=== PATIENT | female | born 1960 | race Caucasian/White ===

== ENCOUNTER 2020-10-17 19:12 | Emergency (ER) | payer BC, SELFPAY ==
--- NOTE | ~2020-10-17 | US_ITS ---
EXAMINATION: ULTRASOUND ARTERIAL DUPLEX UPPER EXTREMITY LEFT CLINICAL INFORMATION: Left upper extremity numbness/weakness, decreased pulses. COMPARISON: None TECHNIQUE: Multiple 2-D grayscale and duplex Doppler ultrasound images of the arteries of the left upper extremity were obtained. FINDINGS: Scattered areas of hypoechoic plaque is seen within the visualized arterial lumens most pronounced in the mid segment of the left brachial artery with no detectable arterial waveforms. Gross luminal stenosis is seen as proximal as the left subclavian artery of approximately 40%. Aneurysmal dilatation is seen at this level up to 1.8 cm. Similar findings are seen in the left axillary artery. Peak systolic left upper extremity arterial velocities are as follows in centimeters per second: Proximal subclavian: 65 Mid subclavian: 40 Distal subclavian: 57 Axillary: 6 Proximal brachial: 8 Mid brachial: No detectable arterial waveforms. Distal brachial: 39 Radial: 16 Ulnar: 17 US/US arterial duplex UE LT IMPRESSION: 1. Scattered moderate to severe hypoechoic plaque causing significant areas of luminal stenosis most pronounced in the mid segment of the left brachial vein with no detectable arterial waveforms. Arterial waveforms were detected distal to this point. These findings can be confirmed with CT angiography.
[2020-10-17 19:43] VITALS: BP 155/87; PULSE 77; RESP 16; TEMP 36.6; O2SAT 98; BMI 30.1
--- NOTE | 2020-10-17 20:16 | ED.EXTPRO ---
HPI - Extremity Problem General Chief complaint: Extremity Injury, Upper <BREANNA Moss - Last Filed: 10/17/20 21:00> Stated complaint: HAND PAIN <BREANNA Moss - Last Filed: 10/17/20 21:00> Time Seen by Provider: 10/17/20 19:55 <BREANNA Moss - Last Filed: 10/17/20 21:00> Source: patient <BREANNA Moss - Last Filed: 10/17/20 21:00> Mode of arrival: ambulatory <BREANNA Moss - Last Filed: 10/17/20 21:00> History of Present Illness HPI Narrative: 59-year-old female with no significant past medical history presenting to the ED complaining of a left hand/wrist numbness/tingling, pain, discoloration, and weakness x about 2 weeks. Denies known injury/trauma or falls. Denies cigarette smoking. Denies CP/SOB, nausea/vomiting, abdominal pain, history of blood clots, recent travel. Denies taking any anticoagulation <BREANNA Moss - Last Filed: 10/17/20 21:00> MD Complaint: extremity pain <BREANNA Moss Last Filed: 10/17/20 21:00> Related Data Allergies/Adverse reactions: Allergies Allergy/AdvReac Type Severity Reaction Status Date / Time acetaminophen [From TYLENOL] Allergy Severe ANAPHYLAXIS Verified 10/17/20 22:31 caramel [CARAMEL] Allergy Severe ANAPHYLAXIS Verified 10/17/20 22:31 tree nut [TREE NUT] Allergy Severe ANAPHYLAXIS Verified 10/17/20 22:31 morphine [MORPHINE] Allergy Intermediate HIVES Verified 10/17/20 22:31 bee pollen [BEE STINGS] Allergy Unknown THROAT Verified 10/17/20 22:31 SWELLING codeine [CODEINE] Allergy Unknown SWELLING Verified 10/17/20 22:31 iodine [IODINE] Allergy Unknown THROAT Verified 10/17/20 22:31 SWELLING Penicillins [PENICILLINS] Allergy Unknown RASH Verified 10/17/20 22:31 spider venom [SPIDER BITES] Allergy Unknown RASH\ Verified 10/17/20 22:31 trazodone AdvReac Headache Verified 10/17/20 22:31 CHOCOLATE Allergy Severe ANAPHYLAXIS Uncoded 10/17/20 22:31 SEAFOOD Allergy Severe ANAPHYLAXIS Uncoded 10/17/20 22:31 <BREANNA Moss - Last Filed: 10/17/20 21:00> Review of Systems Review of Systems: Constitutional: No Fever, No Chills, No Fatigue, No Malaise Cardiovascular: No Chest Pain, No SOB, No Edema Respiratory: No Cough, No Dyspnea Gastrointestinal: No Nausea, No Vomiting, No Abdominal pain Musculoskeletal: + joint pain, No Myalgias, No Joint Swelling Skin: No Skin Lesions, No rash Neuro: + Weakness, + Numbness, + Paresthesias, No Loss of Consciousness, No Dizziness, No Headache <BREANNA Moss - Last Filed: 10/17/20 21:00> Yes all other systems are reviewed and are negative <BREANNA Moss - Last Filed: 10/17/20 21:00> Neurologic: Denies Sensory deficit (Neuro) <BREANNA Moss - Last Filed: 10/17/20 21:00> [facility] Past Medical History Attestation statement: The following information was validated with the patient. <BREANNA Moss - Last Filed: 10/17/20 21:00> Social History Social History: Social History Advance Directives: No Advance Directives Information Provided: No <BREANNA Moss - Last Filed: 10/17/20 21:00> Physical Exam Vital Signs: Vital Signs: Last Vital Signs Temp 98 F 10/17/20 19:43 Pulse 78 10/17/20 22:08 Resp 16 10/17/20 19:43 BP 161/117 H 10/17/20 22:08 Pulse Ox 97 10/17/20 22:08 Body Mass Index 30.0 <BREANNA Moss - Last Filed: 10/17/20 21:00> Vital Signs: Last Vital Signs Temp 98 F 10/17/20 19:43 Pulse 78 10/17/20 22:08 Resp 16 10/17/20 19:43 BP 161/117 H 10/17/20 22:08 Pulse Ox 97 10/17/20 22:08 Body Mass Index 30.0 <Kedar Coyne MD - Last Filed: 10/17/20 23:05> Const: General: cooperative, healthy appearing and no acute distress <BREANNA Moss - Last Filed: 10/17/20 21:00> Orientation/consciousness: patient oriented x3 <Rocael Gongora CT - Last Filed: 10/17/20 21:00> Limitations: no limitations <Rocael Gongora CT - Last Filed: 10/17/20 21:00> HENMT: Head: Yes normal to inspection <Rocael Gongora CT - Last Filed: 10/17/20 21:00> Ears: hearing grossly normal bilaterally <Rocael Gongora CT - Last Filed: 10/17/20 21:00> General nose exam: Normal external nose present <Rocael Gongora CT - Last Filed: 10/17/20 21:00> Face and sinus: Yes normal facial exam <Rocael Gongora CT - Last Filed: 10/17/20 21:00> Eyes: General: appearance normal, both eyes and all related structures <Rocael Gongora CT - Last Filed: 10/17/20 21:00> EOM: EOMs intact bilaterally <Rocael Gongora CT - Last Filed: 10/17/20 21:00> Neck: Other: No midline cervical spinous tenderness <Rocael Gongora CT - Last Filed: 10/17/20 21:00> Neck: Yes normal visual inspection <Rocael Gongora CT - Last Filed: 10/17/20 21:00> Chest: Chest palpation & inspection: normal inspection of the chest <Rocael Gongora CT - Last Filed: 10/17/20 21:00> Resp: Effort & Inspection: normal respiratory effort <Rocael Gongora CT - Last Filed: 10/17/20 21:00> Cardio: Other: Pulses intact all 4 extremities, however left radial pulse decreased <Rocael Gongora CT - Last Filed: 10/17/20 21:00> Rate: regular rate <Rocael Gongora CT - Last Filed: 10/17/20 21:00> GI: Inspection: Yes normal to inspection <BREANNA Moss - Last Filed: 10/17/20 21:00> Back/Spine/Pelvis: Other: No midline thoracic/lumbar spinous tenderness <Rocael Gongora CT - Last Filed: 10/17/20 21:00> Skin: Other: Notable color change to left upper extremity with slight chill. No mottling <BREANNA Moss - Last Filed: 10/17/20 21:00> Rashes: no rashes <BREANNA Moss - Last Filed: 10/17/20 21:00> Wounds: no wounds <BREANNA Moss - Last Filed: 10/17/20 21:00> Neuro: Other: Decreased strength to left upper extremity. Sensation intact to light touch <BREANNA Moss - Last Filed: 10/17/20 21:00> General: patient oriented x3 and tone normal <BREANNA Moss - Last Filed: 10/17/20 21:00> Motor exam (neuro): no tremor noted and Abnormal motor strength present <BREANNA Moss - Last Filed: 10/17/20 21:00> Sensory Exam: No Sensory deficit (Neuro) <BREANNA Moss - Last Filed: 10/17/20 21:00> Extrem: General: Yes normal to inspection <BREANNA Moss - Last Filed: 10/17/20 21:00> Course Course Course Narrative: -2099--ED care transferred to [facility] pending labs, CT, and ultrasound, dispo per results <BREANNA Moss - Last Filed: 10/17/20 21:00> MDM - Extremity (Nontraumatic) MDM Narrative Medical decision making narrative: 59-year-old female with no significant past medical history presenting to the ED complaining of a left hand/wrist numbness/tingling, pain, discoloration, and weakness x about 2 weeks. On exam VSS, NAD, physical exam as above. Concern for subclavian thrombosis vs arterial compromise vs neuropathy. Lower concern for DVT. Plan: EKG, labs, CT chest with contrast, arterial upper extremity Doppler <BREANNA Moss - Last Filed: 10/17/20 21:00> Patient 59 years old with history of hypertension noticed left hand cold and numb since 10/02/2020 after a blood draw in antecubital area which was missed and had small hematoma at that time since then patient complaining of left forearm numb and is without significant pain no weakness no shortness of breath also patient had left clavicle fracture 20 years ago. No bluish discoloration no change in feeling of left arm with head movement or neck movement. Patient has seen her PCP 2 times since then and was told that she has a carpal tunnel. On exam since she has decreased pulses all the way from brachial to the radial , left forearm and hand is slightly colder no cyanosis decreased capillary filling. 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 Arterial velocities in left subclavian was 57, axillary 6 ,proximal brachial 8 mid brachial no detectable, distal brachial 39 radial 16 ulnar 17. Case discussed with Dr. Morales vascular surgeon at [facility] advised patient to be transfer to [facility]. Started on heparin bolus and drip are waiting for call back from [facility], accepted by Dr. Raffi Reynoso vascular surgeon <Kedar Coyne MD - Last Filed: 10/17/20 23:05> Lab Data Result diagrams: : 10/17/20 20:21 10/17/20 20:21 <BREANNA Moss - Last Filed: 10/17/20 21:00> Labs: Lab Results 10/17/20 10/17/20 10/17/20 Range/Units 20:21 20:21 20:21 WBC 5.5 (4.8-10.8) X10*3/uL RBC 3.54 L (4.20-5.50) X10*6/uL Hgb 8.9 L (12.0-16.0) g/dl Hct 28.6 L (37-47) % MCV 80.8 (80-98) fL MCH 25.1 L (27.0-33.0) pg MCHC 31.1 (31.0-35.0) g/dl RDW 15.9 (11.0-16.0) % Plt Count 290 (160-400) X10*3/uL MPV 9.6 (9.4-12.3) fL Immature Gran % (Auto) 0.2 (0.0-0.4) % Neut % (Auto) 50.1 (45-73) % Lymph % (Auto) 38.2 (20-40) % [place] % (Auto) 8.0 (2-11) % Eos % (Auto) 3.3 (0-4) % Baso % (Auto) 0.2 (0-2) % Lymph # (Auto) 2.1 (1.2-4.9) X10*3/uL [place] # (Auto) 0.4 (0.1-1.2) X10*3/uL Eos # (Auto) 0.2 (0.0-0.4) X10*3/uL Baso # (Auto) 0.0 (0.0-0.2) X10*3/uL Abs Immat Gran (auto) 0.01 (0.00-0.03) X10*3/uL Absolute Neuts (auto) 2.8 (2.0-8.3) X10*3/uL Absolute Nucleated RBC 0.000 (0.0-0.012) X10*3/uL Nucleated RBC % (auto) 0.0 (0.0-0.2) /100WBC PT 10.6 L (10.8-13.0) SEC INR 0.9 (0.9-1.1) APTT 32.6 (24.1-38.0) SEC Sodium 139 (135-145) mmol/L Potassium 3.7 (3.3-5.1) mmol/L Chloride 101 (96-108) mmol/L Carbon Dioxide 28 (22-29) mmol/L Anion Gap 14 (12-20) BUN 30 H (9-16) mg/dL Creatinine 1.22 (0.5-1.4) mg/dL Estim Creat Clear Calc 47.6 Estimated GFR 45 Random Glucose 96 (60-115) mg/dL Calcium 9.6 (8.4-10.2) mg/dL Magnesium (1.6-2.6) mg/dL Total Bilirubin (0.0-1.0) mg/dL Direct Bilirubin (0.0-0.5) mg/dL AST (5-31) U/L ALT (0-31) U/L Alkaline Phosphatase (39-117) U/L Total Protein (6.5-8.0) g/dL Albumin (3.5-5.0) g/dL COVID-19 (YA) (Negative) COVID-19 Clin Com 10/17/20 10/17/20 Range/Units 20:21 22:19 WBC (4.8-10.8) X10*3/uL RBC (4.20-5.50) X10*6/uL Hgb (12.0-16.0) g/dl Hct (37-47) % MCV (80-98) fL MCH (27.0-33.0) pg MCHC (31.0-35.0) g/dl RDW (11.0-16.0) % Plt Count (160-400) X10*3/uL MPV (9.4-12.3) fL Immature Gran % (Auto) (0.0-0.4) % Neut % (Auto) (45-73) % Lymph % (Auto) (20-40) % [place] % (Auto) (2-11) % Eos % (Auto) (0-4) % Baso % (Auto) (0-2) % Lymph # (Auto) (1.2-4.9) X10*3/uL [place] # (Auto) (0.1-1.2) X10*3/uL Eos # (Auto) (0.0-0.4) X10*3/uL Baso # (Auto) (0.0-0.2) X10*3/uL Abs Immat Gran (auto) (0.00-0.03) X10*3/uL Absolute Neuts (auto) (2.0-8.3) X10*3/uL Absolute Nucleated RBC (0.0-0.012) X10*3/uL Nucleated RBC % (auto) (0.0-0.2) /100WBC PT (10.8-13.0) SEC INR (0.9-1.1) APTT (24.1-38.0) SEC Sodium (135-145) mmol/L Potassium (3.3-5.1) mmol/L Chloride (96-108) mmol/L Carbon Dioxide (22-29) mmol/L Anion Gap (12-20) BUN (9-16) mg/dL Creatinine (0.5-1.4) mg/dL Estim Creat Clear Calc Estimated GFR Random Glucose (60-115) mg/dL Calcium (8.4-10.2) mg/dL Magnesium 2.3 (1.6-2.6) mg/dL Total Bilirubin 0.2 (0.0-1.0) mg/dL Direct Bilirubin < 0.2 (0.0-0.5) mg/dL AST 20 (5-31) U/L ALT 11 (0-31) U/L Alkaline Phosphatase 59 (39-117) U/L Total Protein 6.1 L (6.5-8.0) g/dL Albumin 3.9 (3.5-5.0) g/dL COVID-19 (YA) Negative (Negative) COVID-19 Clin Com See Note <BRENANA Moss - Last Filed: 10/17/20 21:00> Lab Results 10/17/20 10/17/20 10/17/20 Range/Units 20:21 20:21 20:21 WBC 5.5 (4.8-10.8) X10*3/uL RBC 3.54 L (4.20-5.50) X10*6/uL Hgb 8.9 L (12.0-16.0) g/dl Hct 28.6 L (37-47) % MCV 80.8 (80-98) fL MCH 25.1 L (27.0-33.0) pg MCHC 31.1 (31.0-35.0) g/dl RDW 15.9 (11.0-16.0) % Plt Count 290 (160-400) X10*3/uL MPV 9.6 (9.4-12.3) fL Immature Gran % (Auto) 0.2 (0.0-0.4) % Neut % (Auto) 50.1 (45-73) % Lymph % (Auto) 38.2 (20-40) % [place] % (Auto) 8.0 (2-11) % Eos % (Auto) 3.3 (0-4) % Baso % (Auto) 0.2 (0-2) % Lymph # (Auto) 2.1 (1.2-4.9) X10*3/uL [place] # (Auto) 0.4 (0.1-1.2) X10*3/uL Eos # (Auto) 0.2 (0.0-0.4) X10*3/uL Baso # (Auto) 0.0 (0.0-0.2) X10*3/uL Abs Immat Gran (auto) 0.01 (0.00-0.03) X10*3/uL Absolute Neuts (auto) 2.8 (2.0-8.3) X10*3/uL Absolute Nucleated RBC 0.000 (0.0-0.012) X10*3/uL Nucleated RBC % (auto) 0.0 (0.0-0.2) /100WBC PT 10.6 L (10.8-13.0) SEC INR 0.9 (0.9-1.1) APTT 32.6 (24.1-38.0) SEC Sodium 139 (135-145) mmol/L Potassium 3.7 (3.3-5.1) mmol/L Chloride 101 (96-108) mmol/L Carbon Dioxide 28 (22-29) mmol/L Anion Gap 14 (12-20) BUN 30 H (9-16) mg/dL Creatinine 1.22 (0.5-1.4) mg/dL Estim Creat Clear Calc 47.6 Estimated GFR 45 Random Glucose 96 (60-115) mg/dL Calcium 9.6 (8.4-10.2) mg/dL Magnesium (1.6-2.6) mg/dL Total Bilirubin (0.0-1.0) mg/dL Direct Bilirubin (0.0-0.5) mg/dL AST (5-31) U/L ALT (0-31) U/L Alkaline Phosphatase (39-117) U/L Total Protein (6.5-8.0) g/dL Albumin (3.5-5.0) g/dL COVID-19 (YA) (Negative) COVID-19 Clin Com 10/17/20 10/17/20 Range/Units 20:21 22:19 WBC (4.8-10.8) X10*3/uL RBC (4.20-5.50) X10*6/uL Hgb (12.0-16.0) g/dl Hct (37-47) % MCV (80-98) fL MCH (27.0-33.0) pg MCHC (31.0-35.0) g/dl RDW (11.0-16.0) % Plt Count (160-400) X10*3/uL MPV (9.4-12.3) fL Immature Gran % (Auto) (0.0-0.4) % Neut % (Auto) (45-73) % Lymph % (Auto) (20-40) % [place] % (Auto) (2-11) % Eos % (Auto) (0-4) % Baso % (Auto) (0-2) % Lymph # (Auto) (1.2-4.9) X10*3/uL [place] # (Auto) (0.1-1.2) X10*3/uL Eos # (Auto) (0.0-0.4) X10*3/uL Baso # (Auto) (0.0-0.2) X10*3/uL Abs Immat Gran (auto) (0.00-0.03) X10*3/uL Absolute Neuts (auto) (2.0-8.3) X10*3/uL Absolute Nucleated RBC (0.0-0.012) X10*3/uL Nucleated RBC % (auto) (0.0-0.2) /100WBC PT (10.8-13.0) SEC INR (0.9-1.1) APTT (24.1-38.0) SEC Sodium (135-145) mmol/L Potassium (3.3-5.1) mmol/L Chloride (96-108) mmol/L Carbon Dioxide (22-29) mmol/L Anion Gap (12-20) BUN (9-16) mg/dL Creatinine (0.5-1.4) mg/dL Estim Creat Clear Calc Estimated GFR Random Glucose (60-115) mg/dL Calcium (8.4-10.2) mg/dL Magnesium 2.3 (1.6-2.6) mg/dL Total Bilirubin 0.2 (0.0-1.0) mg/dL Direct Bilirubin < 0.2 (0.0-0.5) mg/dL AST 20 (5-31) U/L ALT 11 (0-31) U/L Alkaline Phosphatase 59 (39-117) U/L Total Protein 6.1 L (6.5-8.0) g/dL Albumin 3.9 (3.5-5.0) g/dL COVID-19 (YA) Negative (Negative) COVID-19 Clin Com See Note <Kedar Coyne MD - Last Filed: 10/17/20 23:05> Imaging Data arterial doppler L arm: Attestation: I personally reviewed and interpreted this imaging study as follows: <Kedar Coyne MD - Last Filed: 10/17/20 23:05> Radiologist's impression: Patient: Jonathan Heredia EMR#: [id number]: [id number]:[id number]/Sex: 59 / FADM Date: 10/17/20Loc: HO.EDAttending Dr: Ordering Physician: ROCAEL GONGORA Date of Service: 10/17/20 Procedure(s): US arterial duplex UE LT Accession Number(s): [id number] cc: ROCAEL GONGORA~ EXAMINATION: ULTRASOUND ARTERIAL DUPLEX UPPER EXTREMITY LEFT CLINICAL INFORMATION: Left upper extremity numbness/weakness, decreased pulses. COMPARISON: None TECHNIQUE: Multiple 2-D grayscale and duplex Doppler ultrasound images of the arteries of the left upper extremity were obtained. FINDINGS: Scattered areas of hypoechoic plaque is seen within the visualized arterial lumens most pronounced in the mid segment of the left brachial artery with no detectable arterial waveforms. Gross luminal stenosis is seen as proximal as the left subclavian artery of approximately 40%. Aneurysmal dilatation is seen at this level up to 1.8 cm. Similar findings are seen in the left axillary artery. Peak systolic left upper extremity arterial velocities are as follows in centimeters per second: Proximal subclavian: 65 Mid subclavian: 40 Distal subclavian: 57 Axillary: 6 Proximal brachial: 8 Mid brachial: No detectable arterial waveforms. Distal brachial: 39 Radial: 16 Ulnar: 17 US/US arterial duplex UE LT IMPRESSION: 1. Scattered moderate to severe hypoechoic plaque causing significant areas of luminal stenosis most pronounced in the mid segment of the left brachial vein with no detectable arterial waveforms. Arterial waveforms were detected distal to this point. These findings can be confirmed with CT angiography. Dictated By:MELIZA MOON MDSigned By:<Electronically signed by MELIZA MOON MD in [place]> <Kedar Coyne MD - Last Filed: 10/17/20 23:05>
--- NOTE | 2020-10-17 20:25 | ECG_ITS ---
Test Reason : NUMBNESS Blood Pressure : / mmHG Vent. Rate : 075 BPM Atrial Rate : 075 BPM P-R Int : 126 ms QRS Dur : 090 ms QT Int : 410 ms P-R-T Axes : 041 045 024 degrees QTc Int : 457 ms Normal sinus rhythm Normal ECG No previous ECGs available Referred By: Brittaney Gongora Electronically Signed By:LANA ZUNIGA
[2020-10-17 20:27] LABS: MANUAL DIFF FLAG NO
[2020-10-17 20:30] LABS: Basophils Percent Auto 0.2 % (0-2); Eosinophils Absolute Auto 0.2 X10*3/uL (0.0-0.4); Eosinophils Percent Auto 3.3 % (0-4); Hematocrit 28.6 % (37-47); Hemoglobin 8.9 g/dl (12.0-16.0); Imm Gran Abs Auto 0.01 X10*3/uL (0.00-0.03); Imm Gran Pct Auto 0.2 % (0.0-0.4); Lymphocytes Absolute Auto 2.1 X10*3/uL (1.2-4.9); Lymphocytes Percent Auto 38.2 % (20-40); Mean Corpuscular HGB Conc 31.1 g/dl (31.0-35.0); Mean Corpuscular Hemoglobin 25.1 pg (27.0-33.0); Mean Corpuscular Volume 80.8 fL (80-98); Mean Platelet Volume 9.6 fL (9.4-12.3); Monocytes Absolute Auto 0.4 X10*3/uL (0.1-1.2); Neutrophils Absolute Auto 2.8 X10*3/uL (2.0-8.3); Neutrophils Percent Auto 50.1 % (45-73); Platelet Count 290 X10*3/uL (160-400); Red Blood Count 3.54 X10*6/uL (4.20-5.50); Red Cell Distribution Width 15.9 % (11.0-16.0); White Blood Count 5.5 X10*3/uL (4.8-10.8)
[2020-10-17 20:36] LABS: INTERNATIONAL NORM RATIO 0.9 (0.9-1.1); Prothrombin Time 10.6 SEC (10.8-13.0)
[2020-10-17 20:38] LABS: Partial Thromboplastin Time 32.6 SEC (24.1-38.0)
[2020-10-17 20:55] LABS: Anion Gap 14 (12-20); Blood Urea Nitrogen 30 mg/dL (9-16); Calcium 9.6 mg/dL (8.4-10.2); Carbon Dioxide 28 mmol/L (22-29); Chloride 101 mmol/L (96-108); Creatinine Clr Calc Pharmacy 47.6; Estimated Glomerular Filt Rate 45; Glucose Random 96 mg/dL (60-115); Potassium 3.7 mmol/L (3.3-5.1); Sodium 139 mmol/L (135-145)
[2020-10-17 21:12] LABS: Alanine Aminotransferase 11 U/L (0-31); Albumin Level 3.9 g/dL (3.5-5.0); Alkaline Phosphatase 59 U/L (39-117); Aspartate Amino Transferase 20 U/L (5-31); Bilirubin Direct < 0.2 mg/dL (0.0-0.5); Bilirubin Total 0.2 mg/dL (0.0-1.0); Magnesium 2.3 mg/dL (1.6-2.6); Total Protein 6.1 g/dL (6.5-8.0)
[2020-10-17 22:08] VITALS: BP 161/117; PULSE 78; O2SAT 97
[2020-10-17] MEDS: Heparin Sodium,Porcine 5,000 UNIT/ML VIAL 5000 UNIT IVPUSH (22:31)
--- NOTE | 2020-10-17 22:35 | PC.NURSE ---
AT 2227 REQUESTED CALL PLACED TO [facility] [place] LINE [phone] COORDINATOR ANSWERED TAKES PTS INFO. CALL BACK NUMBER ASKE TO SPEAK WITH DR.ANWER PARISH TOOK OVER CALL RIGHT AWAY.
[2020-10-17 22:43] LABS: COVID-19 Test Negative (Negative)
--- NOTE | 2020-10-17 23:01 | PC.NURSE ---
AT 2253 RETURNED CALL FROM PTS PLACEMENT ANSWERS STATES ACCEPTING DR.HADRO BOYER TO ER
[2020-10-17] MEDS: Heparin Sodium,Porcine/1/2NS 25,000 UNIT/250 ML IV.SOLN 10.8 UNIT IVCONT (23:03)
[2020-10-17] MEDS: amLODIPine Besylate 5 MG TABLET PO (23:25)
[2020-10-18 00:05] VITALS: BP 134/94; PULSE 83; RESP 16; TEMP 36.6; O2SAT 97
== END 2020-10-18 00:06 | disposition short-term general hospital (02) ==
PROVIDERS: Physician Assistant; Emergency Provider Internal Medicine; PCP Nurse Practitioner
DX: I72.8 Aneurysm of other specified arteries (principal); I70.92 Chronic total occlusion of artery of the extremities; R53.1 Weakness; I10 Essential (primary) hypertension; Z20.822 Contact with and (suspected) exposure to COVID-19
CPT/HCPCS: 36415; 80048; 80076; 83735; 85025; 85610; 85730; 87635; 93005; 93931; 96374; 96376; 99284; 99285